=== PATIENT | female | born 1960 | race Asian ===

== ENCOUNTER 2017-11-16 09:31 | Emergency (ER) | payer OTHER | END 2017-11-16 10:41 | disposition home or self-care (01) | LOC: FTE 09:31 | DX: M25.562 Pain in left knee (principal); I10 Essential (primary) hypertension; E11.9 Type 2 diabetes mellitus without complications; F17.210 Nicotine dependence, cigarettes, uncomplicated | CPT/HCPCS: 73562; 99283-25 ==

== ENCOUNTER → 2018-02-10 | Outpatient (CLI) | payer OTHER | END | disposition home or self-care (01) | LOC: HKI 08:54 | DX: M25.562 Pain in left knee (principal) | CPT/HCPCS: 73564; 73564-LT ==